=== PATIENT | female | born 2000 | race Caucasian/White ===

== ENCOUNTER 2021-01-12 17:30 | Emergency (ER) | payer OTHER ==
[~2021-01-12 17:30] MED LIST: ASPIRIN CHEWABL81 MG PO; ATENOLOL50 MG PO; FERROUS SULFAT325 MG PO; MACROBID100 MG PO; METOCLOPRAMIDE10 MG PO
[2021-01-12 18:02] LABS: BASOPHIL 0.4 % (0-2); HCT 39.8 % (37.0-47.0); HGB 12.6 g/dl (12.5-16.0); LYMPHOCYTE 18.3 % (15-48); MCH 25.7 pg (25.0-31.0); MCHC 31.7 g/dL (32.0-36.0); MCV 81.1 fL (78.0-100.0); MONOCYTE 6.9 % (0-12); MPV 10.7 fL (6.0-9.5); NEUTROPHIL 72.1 % (41-80); NRBC 0; PLT 302 K/uL (150-400); RBC 4.91 M/uL (4.20-5.40); RDW 13.2 % (11.5-14.0); WBC 7.8 K/uL (4.0-10.5)
[2021-01-12 18:12] LABS: BUN/CREAT RATIO (CALC) 16.9 RATIO; CREATININE 0.89 mg/dL (0.51-0.95); POTASSIUM 3.5 mmol/L (3.5-5.1)
[2021-01-12] MEDS ORDERED: ONDANSETRON ODT4 MG PO (18:46)
== END 2021-01-12 18:51 | disposition home or self-care (01) ==
LOC: FER 17:30
PROVIDERS: Emergency Medicine
DX: K52.9 Noninfective gastroenteritis and colitis, unspecified (principal)
CPT/HCPCS: 36415; 80048; 85025; J2405; J7030

== ENCOUNTER 2021-10-14 18:57 | Emergency (ER) | payer OTHER ==
[~2021-10-14 18:57] MED LIST changes: +ONDANSETRON ODT4 MG PO
[2021-10-14 21:42] LABS: BASOPHIL 0.5 % (0-2); EOSINOPHIL 2.7 % (0-5); HCT 38.7 % (37.0-47.0); HGB 11.8 g/dl (12.5-16.0); LYMPHOCYTE 31.5 % (15-48); MCH 25.4 pg (25.0-31.0); MCHC 30.5 g/dL (32.0-36.0); MCV 83.4 fL (78.0-100.0); MONOCYTE 5.2 % (0-12); MPV 9.9 fL (6.0-9.5); NEUTROPHIL 59.8 % (41-80); NRBC 0; PLT 309 K/uL (150-400); RBC 4.64 M/uL (4.20-5.40); RDW 13.1 % (11.5-14.0); WBC 7.3 K/uL (4.0-10.5)
[2021-10-14 21:50] LABS: BILIRUBIN NEGATIVE (NEGATIVE); BLOOD NEGATIVE Ery/uL (NEGATIVE); CLARITY CLEAR (CLEAR); COLOR YELLOW (YELLOW); GLUCOSE (U) NORMAL (NORMAL); LEUKOCYTES 1+ Leu/uL (NEGATIVE); NITRITE NEGATIVE (NEGATIVE); PROTEIN NEGATIVE (NEGATIVE); SPECIFIC GRAVITY 1.015 (1.001-1.030); UROBILINOGEN 0.2 mg/dL (0.2-1.0)
[2021-10-14 22:00] LABS: ALBUMIN 3.7 g/dL (3.4-5.0); BILIRUBIN - TOTAL 0.3 mg/dL (0.2-1.0); BUN/CREAT RATIO (CALC) 7.2 RATIO; CREATININE 0.83 mg/dL (0.51-0.95); GLOBULIN (CALCULATION) 4.8 g/dL; POTASSIUM 3.2 mmol/L (3.5-5.1); TOTAL PROTEIN 8.5 g/dL (6.4-8.2)
[2021-10-14 22:11] LABS: BACTERIA TRACE; URINARY RBC RARE
[2021-10-14 22:12] LABS: CORONAVIRUS 2019 SARS-COV-2 NEGATIVE (NEGATIVE); INFLUENZA A NAA NEGATIVE (NEGATIVE)
[2021-10-14 22:12] LABS: AMORPHOUS URATES CRYSTALS MODERATE
[2021-10-14] MEDS ORDERED: ONDANSETRON ODT4 MG PO (23:24)
[2021-10-14] MEDS ORDERED: CEPHALEXIN500 MG PO (23:24)
[2021-10-14] MEDS ORDERED: BACTROBAN NASAL1 GM TOP (23:24)
== END 2021-10-15 05:42 | disposition home or self-care (01) ==
LOC: FER 18:57
PROVIDERS: Physician Assistant
DX: L01.00 Impetigo, unspecified (principal); N30.00 Acute cystitis without hematuria; R19.7 Diarrhea, unspecified; R11.2 Nausea with vomiting, unspecified; Z20.822 Contact with and (suspected) exposure to COVID-19
CPT/HCPCS: 36415; 71045; 71275; 80053; 81001; 85025; 93005; J2405; J7030; Q9967; U0002